=== PATIENT | male | born 1990 | race Caucasian/White ===

== ENCOUNTER 2019-05-21 11:41 | Outpatient (CLI) | payer BC ==
--- NOTE | 2019-05-21 12:12 | ULT ---
BILATERAL RENAL ULTRASOUND: HISTORY: Chronic renal disease. FINDINGS: The right kidney measures 10.2 cm in length and the left kidney measures 10.8 cm in length. No focal mass or hydronephrosis is seen. Cortical echogenicity and thickness are normal. The urinary bladder i s grossly unremarkable. IMPRESSION: Normal examination. POS: [facility]
== END 2019-05-21 11:42 | disposition home or self-care (01) ==
LOC: SCSULT 11:41
PROVIDERS: ATTEND Internal Medicine Nephrology
DX: N18.1 Chronic kidney disease, stage 1 (principal)
CPT/HCPCS: 76770